=== PATIENT | male | born 1960 | race Two or more races ===

== ENCOUNTER 2016-05-29 01:53 | Inpatient (IN) | payer MEDICAID, OTHER ==
[~2016-05-29] VITALS: Ht 162.6 cm; Wt 74.8 kg
[~2016-05-29 01:53] MED LIST: ACET-868 PO; ASCO500T9 PO; ASPI-605 PO; ATOR20TA PO; BENA40TA2 PO; CLON0.1T PO; CRAN475C PO; DOCU-106 PO; FURO20TA4 PO; GEMF600T3 PO; HYDR-3326 PO; HYDR-4076 PO; INSU100C7 SQ; METO50TA3 PO; MULT1TAB59 PO; OMEG1CAP PO; QUET100T PO; QUET50TA PO
[2016-05-29] MEDS ORDERED: INSU100V7 SQ (02:09)
[2016-05-29] MEDS ORDERED: METO-304 PO (02:09)
[2016-05-29] MEDS ORDERED: AMLO5TAB2 PO (02:09)
[2016-05-29] MEDS ORDERED: INSU100V27 SQ (02:09)
[2016-05-29] MEDS ORDERED: PANT40TA2 PO (02:09)
[2016-05-29] MEDS ORDERED: ALBUTEROL FS 2.5 MG/3 ML VIAL.NEB ONE (02:25)
[2016-05-29] MEDS ORDERED: ALBUTEROL FS 2.5 MG/3 ML VIAL.NEB CONTNEB ONE (02:30)
[2016-05-29 02:39] LABS: KETONES,URINE NEGATIVE (NEGATIVE); LEUKOCYTE ESTERASE ,URINE 1+ (NEGATIVE)
[2016-05-29 02:40] LABS: BASOPHILS % (AUTO) 0.1 % (0.0-2.0); DIFF TOTAL % 100 %; EOSINOPHILS # (AUTO) 0.1 /CMM (0.0-0.7); HEMATOCRIT 31 % (39-51); HEMOGLOBIN 10.1 g/dL (13.5-17.5); LYMPHOCYTES # (AUTO) 1.1 /CMM (0.8-4.8); MEAN CORPUSCULAR HEMOGLOBIN 30 PG (26.0-33.0); MEAN CORPUSCULAR HGB CONC 33 g/dl (31.0-36.0); MEAN CORPUSCULAR VOLUME 90 fL (80-96); MONOCYTES # (AUTO) 0.7 /CMM (0.1-1.30); MONOCYTES % (AUTO) 7.9 % (2.0-12.0); NEUTROPHILS # (AUTO) 7.1 /CMM (1.8-8.9); PLATELET COUNT (AUTO) 130 /CMM (150-450); RED BLOOD CELL COUNT(AUTO) 3.42 MIL/uL (4.5-6.0)
[2016-05-29 02:44] LABS: ADD UA MICROSCOPIC YES
[2016-05-29 02:48] LABS: RBC,URINE 0-5 /HPF (0-2)
[2016-05-29 02:49] LABS: ADD URINE CULTURE YES; MUCUS,URINE Few /LPF (None Seen)
[2016-05-29 02:49] LABS: CALCIUM, SERUM 8.1 mg/dL (8.5-10.1); CREATININE 1.3 mg/dL (0.6-1.3)
[2016-05-29 02:59] LABS: INR 1.07 (0.87-1.13); PROTHROMBIN TIME 11.6 SECS (9.5-12.7)
[2016-05-29] MEDS ORDERED: CEFTRIAXONE 1GM BAG (ER ONLY) 50 ML IV ONE (03:34)
[2016-05-29] MEDS ORDERED: IV SET PRIMARY 1 EA INFUS.SET MC ONE (03:34)
[2016-05-29] MEDS ORDERED: CEFTRIAXONE 1GM BAG (ER ONLY) 1 GM/50 ML PIGGYBACK IV ONE (04:00)
[2016-05-29 04:45] VITALS: BP 141/86
[2016-05-29] MEDS ORDERED: CEFTRIAXONE 1 G in IV D5W 50 ML IV SCH (05:30)
[2016-05-29] MEDS ORDERED: DEXTROSE 50%-WATER 50 ML DISP.SYRIN IV PRN (06:00)
[2016-05-29] MEDS ORDERED: *INSULIN REGULAR(HUMULIN R)HUM 100 UNIT/ML VIAL SQ PRN (06:00)
[2016-05-29] MEDS: BLOOD SUGAR DIAGNOSTIC 1 EACH STRIP VI SCH ×4 (06:42→21:34)
[2016-05-29] MEDS: INSULIN REGULAR, HUMAN 100 UNIT/ML 3 ML VIAL SQ PRN ×3 (06:45→17:14)
[2016-05-29] MEDS ORDERED: BLOOD SUGAR DIAGNOSTIC 1 EACH STRIP IN SCH (07:30)
[2016-05-29 08:00] VITALS: BP 167/75
[2016-05-29 08:07] LABS: ALBUMIN 2.4 g/dL (3.4-5.0); BILIRUBIN,TOTAL 0.2 mg/dL (0.2-1.0); CREATININE 1.5 mg/dL (0.6-1.3); POTASSIUM 4.5 mmol/L (3.5-5.1); TOTAL PROTEIN, SERUM 5.9 g/dL (6.4-8.2)
[2016-05-29] MEDS: ASPIRIN EC 81 MG TABLET.DR PO SCH (11:25)
[2016-05-29] MEDS: METOPROLOL SUCCINATE 50 MG TAB.SR.24H PO SCH (11:26)
[2016-05-29] MEDS: ATORVASTATIN 10 MG TABLET PO SCH (11:27)
[2016-05-29] MEDS ORDERED: INSULIN REGULAR, HUMAN 100 UNIT/ML 3 ML VIAL SQ SCH (12:00)
[2016-05-29] MEDS: INSULIN ASPART NOVOLOG 100 UNIT/ML CARTRIDGE SQ SCH ×2 (12:30→17:13)
[2016-05-29 15:51] LABS: TROPONIN I 0.025 ng/mL (0.00-0.056)
[2016-05-29 16:00] VITALS: BP 156/71
[2016-05-29] MEDS ORDERED: BENAZEPRIL HCL 20 MG TABLET PO SCH (17:00)
[2016-05-29] MEDS: AMLODIPINE BESYLATE 5 MG TABLET PO SCH (17:11)
[2016-05-29] MEDS: BENAZEPRIL HCL 20 MG TABLET PO SCH (17:12)
[2016-05-29 20:00] VITALS: BP 137/82
[2016-05-29] MEDS: ALBUTEROL HALF STRENGTH 1.25 MG/3 ML VIAL.NEB NEB SCH ×2 (20:13→23:04)
[2016-05-29] MEDS: IPRATROPIUM NEB FS 0.5 MG/2.5 ML AMPUL.NEB NEB SCH ×2 (20:13→23:04)
[2016-05-29] MEDS ORDERED: CLONIDINE HCL 0.1 MG TABLET PO PRN (20:30)
[2016-05-29] MEDS ORDERED: ACETAMINOPHEN ES 500 MG TABLET ONE (21:23)
[2016-05-29] MEDS: INSULIN DETEMIR 100 UNIT/ML CARTRIDGE SQ SCH (21:32)
[2016-05-29] MEDS: FUROSEMIDE 20 MG/2 ML VIAL IV SCH (21:32)
[2016-05-29] MEDS: QUETIAPINE FUMARATE 100 MG TABLET PO SCH (21:34)
[2016-05-29] MEDS: ACETAMINOPHEN 650 MG/20.3 ML UDC PO PRN (21:36)
[2016-05-30] MEDS: IPRATROPIUM NEB FS 0.5 MG/2.5 ML AMPUL.NEB NEB SCH ×6 (03:16→23:46)
[2016-05-30] MEDS: ALBUTEROL HALF STRENGTH 1.25 MG/3 ML VIAL.NEB NEB SCH ×6 (03:17→23:46)
[2016-05-30] MEDS ORDERED: IV SET PRIMARY PUMP SET 1 EA INFUS.SET MC ONE (04:54)
[2016-05-30] MEDS ORDERED: IV NS 0.9% 250 ML IV ONE ×2 (04:54→04:55)
[2016-05-30] MEDS ORDERED: SECONDARY IV SET 1 EA INFUS.SET MC ONE (04:55)
[2016-05-30] MEDS: CEFTRIAXONE 1 G in IV D5W 50 ML IV SCH (05:31)
[2016-05-30] MEDS: BLOOD SUGAR DIAGNOSTIC 1 EACH STRIP VI SCH ×2 (07:12→11:27)
[2016-05-30] MEDS: INSULIN ASPART NOVOLOG 100 UNIT/ML CARTRIDGE SQ SCH ×3 (07:13→17:12)
[2016-05-30 08:00] VITALS: BP 138/68
[2016-05-30] MEDS: INSULIN DETEMIR 100 UNIT/ML CARTRIDGE SQ SCH ×2 (09:00→21:21)
[2016-05-30] MEDS: BENAZEPRIL HCL 20 MG TABLET PO SCH ×2 (09:02→16:56)
[2016-05-30] MEDS: ASPIRIN EC 81 MG TABLET.DR PO SCH (09:02)
[2016-05-30] MEDS: FUROSEMIDE 20 MG/2 ML VIAL IV SCH ×2 (09:02→21:17)
[2016-05-30] MEDS: ATORVASTATIN 10 MG TABLET PO SCH (09:02)
[2016-05-30] MEDS: AMLODIPINE BESYLATE 5 MG TABLET PO SCH ×2 (09:03→16:56)
[2016-05-30] MEDS: PANTOPRAZOLE 40 MG TABLET.DR PO SCH (09:03)
[2016-05-30] MEDS: METOPROLOL SUCCINATE 50 MG TAB.SR.24H PO SCH (09:03)
[2016-05-30 12:00] VITALS: BP 130/70
[2016-05-30] MEDS: ACETAMINOPHEN 650 MG/20.3 ML UDC PO PRN (15:15)
[2016-05-30] MEDS ORDERED: DEXTROSE 50%-WATER 50 ML DISP.SYRIN IV PRN (15:30)
[2016-05-30 16:00] VITALS: BP 149/73
[2016-05-30 16:04] VITALS: BP 149/73
[2016-05-30] MEDS: BLOOD SUGAR DIAGNOSTIC 1 EACH STRIP IN SCH ×2 (16:57→21:21)
[2016-05-30] MEDS: INSULIN ASPART NOVOLOG 100 UNIT/ML CARTRIDGE SQ PRN (17:10)
[2016-05-30 19:44] LABS: CHOLESTEROL 145 mg/dL (<200); HDL CHOLESTEROL 31 mg/dL (40-60); LDL 99 mg/dL (0-99); TRIGLYCERIDES 79 mg/dL (30-150)
[2016-05-30 20:00] VITALS: BP 155/72
[2016-05-30] MEDS: QUETIAPINE FUMARATE 100 MG TABLET PO SCH (21:21)
[2016-05-30] MEDS: *INSULIN ASPART NOVOLOG 100 UNIT/ML CARTRIDGE SQ PRN (21:30)
[2016-05-31] VITALS: BP 132/63
[2016-05-31] MEDS: ALBUTEROL HALF STRENGTH 1.25 MG/3 ML VIAL.NEB NEB SCH ×6 (03:30→23:39)
[2016-05-31] MEDS: IPRATROPIUM NEB FS 0.5 MG/2.5 ML AMPUL.NEB NEB SCH ×6 (03:30→23:39)
[2016-05-31 04:00] VITALS: BP 129/67
[2016-05-31] MEDS: CEFTRIAXONE 1 G in IV D5W 50 ML IV SCH (05:54)
[2016-05-31] MEDS ORDERED: IV NS 0.9% 250 ML IV ONE (05:54)
[2016-05-31] MEDS ORDERED: SECONDARY IV SET 1 EA INFUS.SET MC ONE (05:54)
[2016-05-31] MEDS ORDERED: IV SET PRIMARY PUMP SET 1 EA INFUS.SET MC ONE (05:54)
[2016-05-31] MEDS: BLOOD SUGAR DIAGNOSTIC 1 EACH STRIP IN SCH ×4 (05:55→21:37)
[2016-05-31 07:02] VITALS: BP 125/61
[2016-05-31] MEDS: INSULIN ASPART NOVOLOG 100 UNIT/ML CARTRIDGE SQ SCH ×3 (07:30→16:34)
[2016-05-31] MEDS: PANTOPRAZOLE 40 MG TABLET.DR PO SCH (08:15)
[2016-05-31] MEDS: AMLODIPINE BESYLATE 5 MG TABLET PO SCH ×2 (08:15→16:35)
[2016-05-31] MEDS: METOPROLOL SUCCINATE 50 MG TAB.SR.24H PO SCH (08:15)
[2016-05-31] MEDS: FUROSEMIDE 20 MG/2 ML VIAL IV SCH ×2 (08:15→21:36)
[2016-05-31] MEDS: ATORVASTATIN 10 MG TABLET PO SCH (08:15)
[2016-05-31] MEDS: ASPIRIN EC 81 MG TABLET.DR PO SCH (08:15)
[2016-05-31] MEDS: BENAZEPRIL HCL 20 MG TABLET PO SCH ×2 (08:15→16:36)
[2016-05-31] MEDS: INSULIN DETEMIR 100 UNIT/ML CARTRIDGE SQ SCH ×2 (08:20→21:33)
[2016-05-31 12:00] VITALS: BP_SYST 122; BP_DIAS 66; BP_DIAS 69
[2016-05-31 15:46] LABS: BASOPHILS % (AUTO) 0.2 % (0.0-2.0); DIFF TOTAL % 100 %; EOSINOPHILS # (AUTO) 0.1 /CMM (0.0-0.7); EOSINOPHILS % (AUTO) 1.8 % (0.0-6.0); HEMATOCRIT 27 % (39-51); LYMPHOCYTES # (AUTO) 1.3 /CMM (0.8-4.8); LYMPHOCYTES % (AUTO) 16.5 % (20.0-44.0); MEAN CORPUSCULAR HEMOGLOBIN 30 PG (26.0-33.0); MEAN CORPUSCULAR HGB CONC 34 g/dl (31.0-36.0); MEAN CORPUSCULAR VOLUME 90 fL (80-96); MONOCYTES # (AUTO) 0.8 /CMM (0.1-1.30); MONOCYTES % (AUTO) 10.9 % (2.0-12.0); NEUTROPHILS # (AUTO) 5.4 /CMM (1.8-8.9); NEUTROPHILS % (AUTO) 70.6 % (43.0-81.0); PLATELET COUNT (AUTO) 116 /CMM (150-450); WHITE BLOOD COUNT (AUTO) 7.6 K/uL (4.3-11.0)
[2016-05-31 15:55] LABS: CALCIUM, SERUM 8.4 mg/dL (8.5-10.1); CREATININE 1.6 mg/dL (0.6-1.3); POTASSIUM 5.1 mmol/L (3.5-5.1)
[2016-05-31 16:00] VITALS: BP 139/75
[2016-05-31 20:59] VITALS: BP 157/75
[2016-05-31] MEDS: *INSULIN ASPART NOVOLOG 100 UNIT/ML CARTRIDGE SQ PRN (21:34)
[2016-05-31] MEDS: QUETIAPINE FUMARATE 100 MG TABLET PO SCH (21:36)
[2016-06-01] VITALS (7 sets, daily range): BP systolic 117–149; BP diastolic 52–69
[2016-06-01] MEDS: IPRATROPIUM NEB FS 0.5 MG/2.5 ML AMPUL.NEB NEB SCH ×6 (03:28→23:45)
[2016-06-01] MEDS: ALBUTEROL HALF STRENGTH 1.25 MG/3 ML VIAL.NEB NEB SCH ×6 (03:28→23:45)
[2016-06-01] MEDS: CEFTRIAXONE 1 G in IV D5W 50 ML IV SCH (05:48)
[2016-06-01] MEDS: BLOOD SUGAR DIAGNOSTIC 1 EACH STRIP IN SCH ×4 (05:49→21:21)
[2016-06-01] MEDS ORDERED: SECONDARY IV SET 1 EA INFUS.SET MC ONE (06:07)
[2016-06-01] MEDS: INSULIN ASPART NOVOLOG 100 UNIT/ML CARTRIDGE SQ SCH ×3 (07:10→16:46)
[2016-06-01] MEDS: PANTOPRAZOLE 40 MG TABLET.DR PO SCH (08:16)
[2016-06-01] MEDS: METOPROLOL SUCCINATE 50 MG TAB.SR.24H PO SCH (08:17)
[2016-06-01] MEDS: AMLODIPINE BESYLATE 5 MG TABLET PO SCH ×2 (08:17→16:46)
[2016-06-01] MEDS: ASPIRIN EC 81 MG TABLET.DR PO SCH (08:17)
[2016-06-01] MEDS: ATORVASTATIN 10 MG TABLET PO SCH (08:17)
[2016-06-01] MEDS: BENAZEPRIL HCL 20 MG TABLET PO SCH ×2 (08:17→16:46)
[2016-06-01] MEDS: INSULIN DETEMIR 100 UNIT/ML CARTRIDGE SQ SCH ×2 (08:18→21:19)
[2016-06-01] MEDS: FUROSEMIDE 20 MG/2 ML VIAL IV SCH ×2 (08:22→21:17)
[2016-06-01] MEDS: INSULIN ASPART NOVOLOG 100 UNIT/ML CARTRIDGE SQ PRN (12:01)
[2016-06-01] MEDS: QUETIAPINE FUMARATE 100 MG TABLET PO SCH (21:16)
[2016-06-01] MEDS: *INSULIN ASPART NOVOLOG 100 UNIT/ML CARTRIDGE SQ PRN (21:20)
[2016-06-02] MEDS: ALBUTEROL HALF STRENGTH 1.25 MG/3 ML VIAL.NEB NEB SCH ×3 (03:39→11:20)
[2016-06-02] MEDS: IPRATROPIUM NEB FS 0.5 MG/2.5 ML AMPUL.NEB NEB SCH ×3 (03:39→11:20)
[2016-06-02] MEDS: CEFTRIAXONE 1 G in IV D5W 50 ML IV SCH (05:18)
[2016-06-02] MEDS: BLOOD SUGAR DIAGNOSTIC 1 EACH STRIP IN SCH ×2 (06:59→11:18)
[2016-06-02] MEDS: INSULIN ASPART NOVOLOG 100 UNIT/ML CARTRIDGE SQ SCH ×2 (07:01→11:19)
[2016-06-02 08:00] VITALS: BP 142/60
[2016-06-02] MEDS: ATORVASTATIN 10 MG TABLET PO SCH (09:00)
[2016-06-02] MEDS: FUROSEMIDE 20 MG/2 ML VIAL IV SCH (09:01)
[2016-06-02] MEDS: BENAZEPRIL HCL 20 MG TABLET PO SCH (09:01)
[2016-06-02] MEDS: ASPIRIN EC 81 MG TABLET.DR PO SCH (09:01)
[2016-06-02] MEDS: METOPROLOL SUCCINATE 50 MG TAB.SR.24H PO SCH (09:01)
[2016-06-02 09:02] VITALS: BP 142/60
[2016-06-02] MEDS: AMLODIPINE BESYLATE 5 MG TABLET PO SCH (09:02)
[2016-06-02] MEDS: INSULIN DETEMIR 100 UNIT/ML CARTRIDGE SQ SCH (09:05)
[2016-06-02] MEDS: PANTOPRAZOLE 40 MG TABLET.DR PO SCH (10:00)
[2016-06-02] MEDS: INSULIN ASPART NOVOLOG 100 UNIT/ML CARTRIDGE SQ PRN (11:20)
== END 2016-06-02 15:00 | DRG 137 ==
LOC: ER 01:54 → MED 04:23 → TELE 15:22 → MED 06-01 14:28
PROVIDERS: ADMIT Nurse Practitioner Primary Care; ATTEND Internal Medicine
DX: J69.0 Pneumonitis due to inhalation of food and vomit (principal); J96.01 Acute respiratory failure with hypoxia; I50.41 Acute combined systolic (congestive) and diastolic (congestive) heart failure; E11.22 Type 2 diabetes mellitus with diabetic chronic kidney disease; J44.0 Chronic obstructive pulmonary disease with (acute) lower respiratory infection; I13.0 Hypertensive heart and chronic kidney disease with heart failure and stage 1 through stage 4 chronic kidney disease, or unspecified chronic kidney disease; E11.649 Type 2 diabetes mellitus with hypoglycemia without coma; J44.1 Chronic obstructive pulmonary disease with (acute) exacerbation; Z79.4 Long term (current) use of insulin; Z98.61 Coronary angioplasty status; I25.10 Atherosclerotic heart disease of native coronary artery without angina pectoris; D63.8 Anemia in other chronic diseases classified elsewhere; E66.9 Obesity, unspecified; F17.210 Nicotine dependence, cigarettes, uncomplicated; I73.9 Peripheral vascular disease, unspecified; J20.9 Acute bronchitis, unspecified; Z89.512 Acquired absence of left leg below knee; N18.3 Chronic kidney disease, stage 3 (moderate); Z86.19 Personal history of other infectious and parasitic diseases
CPT/HCPCS: 36415; 71020-TC; 80048-TC; 80053-TC; 80061-TC; 81000-TC; 82947-TC; 82962-TC; 83880; 84484-TC; 85025-TC; 85610-TC; 87081-TC; 87086-TC; 93307-TC; 94799-TC; 97001-TC; 97003-TC; A4606; J0696; J1815; J1940; J7050; J7060; Z7610

== ENCOUNTER 2019-03-22 10:57 | Emergency (ER) | payer OTHER ==
[~2019-03-22] VITALS: Ht 157.5 cm; Wt 63.5 kg
[~2019-03-22 10:57] MED LIST changes: -ACET-868 PO; +AMLO5TAB9 PO; -ASCO500T9 PO; -BENA40TA2 PO; -CLON0.1T PO; -CRAN475C PO; -DOCU-106 PO; -FURO20TA4 PO; -GEMF600T3 PO; -HYDR-3326 PO; -HYDR-4076 PO; -INSU100C7 SQ; +INSU100V27 SQ; +INSU100V7 SQ; +METO-357 PO; -METO50TA3 PO; -MULT1TAB59 PO; -OMEG1CAP PO; +PANT40TA2 PO; -QUET50TA PO
[2019-03-22 11:01] VITALS: BP 160/68
--- NOTE | 2019-03-22 11:20 | NUR ---
per jf juarez eta 1200. trip # [id number]
--- NOTE | 2019-03-22 12:30 | NUR ---
Patient picked up by [facility] in stable condition. patient will be brought back to [facility]. Written and verbal after care instructions given. Patient verbalizes understanding of instruction.
== END 2019-03-22 12:43 ==
LOC: ER 11:01
DX: J02.9 Acute pharyngitis, unspecified (principal); I10 Essential (primary) hypertension; E11.9 Type 2 diabetes mellitus without complications; Z89.512 Acquired absence of left leg below knee; Z79.4 Long term (current) use of insulin; Z79.899 Other long term (current) drug therapy; Z79.82 Long term (current) use of aspirin

== ENCOUNTER 2019-12-10 18:40 | Emergency (ER) | payer OTHER ==
[~2019-12-10] VITALS: Ht 157.5 cm; Wt 63.5 kg
--- NOTE | 2019-12-10 18:40 | NUR ---
PT BIBRA FROM SNF C/O ABODMINAL PAIN FOR 2 WEEKS. PT IS AAOX4, NOT IN RESPIRATORY DISTRESS, HOOKED TO JOCKEY ROOM CUSTODIAN, KEPT RESTED AND COMFORTABLE. WILL CONTINUE TO MONITOR.
--- NOTE | 2019-12-10 18:58 | NUR ---
PT SEEN AND EXAMINED BY JAYA CORBETT.
[2019-12-10] MEDS ORDERED: ONDANSETRON HCL/PF 4 MG/2 ML VIAL IVP ONE (19:00)
[2019-12-10] MEDS ORDERED: IV NS 0.9% 1,000 ML BAG IV ONE (19:00)
[2019-12-10] MEDS ORDERED: MORPHINE SULFATE INJ 2 MG/ML DISP.SYRIN IV ONE (19:00)
--- NOTE | 2019-12-10 19:03 | NUR ---
IV LINE ESTABLISHED BLOOD DRAWN AND SENT TO LAB.
[2019-12-10] MEDS ORDERED: MORPHINE SULFATE INJ 4 MG/ML DISP.SYRIN ONE (19:09)
[2019-12-10] MEDS ORDERED: ONDANSETRON HCL/PF 4 MG/2 ML VIAL ONE (19:09)
[2019-12-10 19:13] LABS: BASOPHILS # (AUTO) 0.1 /CMM (0.0-0.2); BASOPHILS % (AUTO) 0.8 % (0.0-2.0); EOSINOPHILS % (AUTO) 0.5 % (0.0-6.0); HEMATOCRIT 36 % (39-51); HEMOGLOBIN 12.1 g/dL (13.5-17.5); LYMPHOCYTES # (AUTO) 0.7 /CMM (0.8-4.8); MEAN CORPUSCULAR HGB CONC 34 g/dl (31.0-36.0); MEAN CORPUSCULAR VOLUME 101 fL (80-96); MONOCYTES # (AUTO) 0.6 /CMM (0.1-1.30); MONOCYTES % (AUTO) 8.1 % (2.0-12.0); NEUTROPHILS # (AUTO) 6.2 /CMM (1.8-8.9); NEUTROPHILS % (AUTO) 81.6 % (43.0-81.0); PLATELET COUNT (AUTO) 94 /CMM (150-450); RED BLOOD CELL COUNT(AUTO) 3.58 MIL/uL (4.5-6.0); WHITE BLOOD COUNT (AUTO) 7.7 K/uL (4.3-11.0)
--- NOTE | 2019-12-10 19:16 | NUR ---
URINAL GIVEN BUT UNABLE TO PROVIDE URINE SPECIMEN THIS TIME.
--- NOTE | 2019-12-10 19:21 | NUR ---
ASKED PT TO PROVIDE URINE SAMPLE.
[2019-12-10 19:25] LABS: CREATININE 3.5 mg/dL (0.6-1.3); POTASSIUM 3.9 mmol/L (3.5-5.1)
--- NOTE | 2019-12-10 19:32 | NUR ---
URINE SENT TO LAB
[2019-12-10 19:36] LABS: ALBUMIN 3.5 g/dL (3.4-5.0); BILIRUBIN,DIRECT 0.1 mg/dL (0.0-0.2); BILIRUBIN,TOTAL 0.4 mg/dL (0.2-1.0); TOTAL PROTEIN, SERUM 6.3 g/dL (6.4-8.2)
--- NOTE | 2019-12-10 19:50 | NUR ---
[facility] in ED - 12/10/19 at 2001 by RASHARD US AT BEDSIDE
[2019-12-10 19:51] LABS: APPEARANCE,URINE Clear (CLEAR); BILIRUBIN,URINE Negative (NEGATIVE); BLOOD, URINE Negative Ery/uL (NEGATIVE); COLOR,URINE Yellow (YELLOW); KETONES,URINE Negative (NEGATIVE); LEUKOCYTE ESTERASE ,URINE Moderate (NEGATIVE); NITRITE, URINE Negative (NEGATIVE); PH,URINE 8.5 (5.0-8.0); PROTEIN,URINE >=300 mg/dl (NEGATIVE); UGLUCOSE 100 MG/DL mg/dL (NEGATIVE); UROBILINOGEN,URINE 0.2 EU/dL (0.2)
--- NOTE | 2019-12-10 19:59 | NUR ---
PT BROUGHT TO CT.
[2019-12-10 20:07] LABS: LYMPHOCYTES % (MANUAL) 10 % (16-48); MONOCYTES % (MANUAL) 4 % (0-11.0); NEUTROPHILS % (MANUAL) 86 (42-76)
--- NOTE | 2019-12-10 20:14 | NUR ---
BROUGHT BACK FROM CT
[2019-12-10 20:23] LABS: BACTERIA,URINE Few /HPF (None Seen); RBC,URINE 0-2 /HPF (0-2); SQUAMOUS EPITHELIAL CELL,UR Few /HPF (None Seen)
[2019-12-10 20:24] LABS: URINE AMORPHOUS URATE Moderate /HPF (None Seen)
--- NOTE | 2019-12-10 20:48 | NUR ---
aquarium tank attendant at bedside for blood cultures
[2019-12-10] MEDS ORDERED: CEFTRIAXONE 1GM BAG (ER ONLY) 0 ML IV ONE (20:52)
--- NOTE | 2019-12-10 20:54 | NUR ---
PAGED DR. HERNANDEZ- BUILDING MOVER JUMANA YODER NP SPEAKING WITH QUINTON CORBETT
[2019-12-10] MEDS ORDERED: CEFTRIAXONE 1GM BAG (ER ONLY) 1 GM/50 ML PIGGYBACK IV ONE (21:00)
--- NOTE | 2019-12-10 21:12 | NUR ---
CALLED FACILITY. FACILITY AWARE PT GOING BACK.
--- NOTE | 2019-12-10 21:19 | NUR ---
CALLED [facility] FOR TRANSPORT, SPOKE WITH LOLI. ETA ~2200
[2019-12-10] MEDS ORDERED: hydrALAZINE HCL 10 MG TABLET PO ONE (22:00)
[2019-12-10] MEDS ORDERED: hydrALAZINE HCL IV 20 MG VIAL IV ONE (22:00)
--- NOTE | 2019-12-10 22:01 | NUR ---
IV removed. Catheter intact and site benign. Pressure and 4x4 applied to site. No bleeding noted.
[2019-12-10] MEDS ORDERED: hydrALAZINE HCL 25 MG TABLET ONE (22:08)
--- NOTE | 2019-12-10 22:13 | NUR ---
REPORT GIVEN TO [facility]. Patient discharged in stable condition. Written and verbal after care instructions given. Patient verbalizes understanding of instruction.
--- NOTE | 2019-12-10 22:13 | NUR ---
[facility] in [facility] - 12/10/19 at 2213 by RASHARD REPORT GIVEN TO [facility]. MECHE SHAHID
[2019-12-10 22:17] VITALS: BP 151/58
== END 2019-12-10 22:25 | disposition home or self-care (01) ==
LOC: ER 18:49
DX: R10.84 Generalized abdominal pain (principal); D64.9 Anemia, unspecified; J98.11 Atelectasis; I12.0 Hypertensive chronic kidney disease with stage 5 chronic kidney disease or end stage renal disease; E11.22 Type 2 diabetes mellitus with diabetic chronic kidney disease; N18.6 End stage renal disease; Z99.2 Dependence on renal dialysis; Z89.512 Acquired absence of left leg below knee; Z79.4 Long term (current) use of insulin; Z79.82 Long term (current) use of aspirin; Z79.899 Other long term (current) drug therapy
CPT/HCPCS: 36415; 71045; 74176; 80048; 80076; 81001; 82962; 83690; 85025; 87086; 96374; 96375; 99285; J2270; J2405; J7030; 81000-TC; J0696

== ENCOUNTER 2020-12-04 22:02 | Emergency (ER) | payer OTHER ==
[~2020-12-04] VITALS: Ht 165.1 cm; Wt 63.5 kg
[~2020-12-04 22:02] MED LIST changes: +AMLO-212 PO; -AMLO5TAB9 PO
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
[2020-12-04] MEDS ORDERED: TRAMADOL HCL 50 MG TABLET ONE (23:58)
[2020-12-05] MEDS: TRAMADOL HCL 50 MG TABLET PO ONE
--- NOTE | 2020-12-05 00:03 | NUR ---
Patient discharged to assisted living facility in stable condition. Written and verbal after care instructions given. Patient verbalizes understanding of instruction. taken by ambulance.
--- NOTE | 2020-12-05 00:56 | NUR ---
CALLED CALL THE CAR FOR PT. ETA 2:30
--- NOTE | 2020-12-05 01:16 | NUR ---
REPORT GIVEN TO [facility] STAFF FOR [facility].
[2020-12-05 01:54] VITALS: BP 130/70
== END 2020-12-05 02:45 ==
LOC: ER 22:02
DX: S80.11XA Contusion of right lower leg, initial encounter (principal); E11.40 Type 2 diabetes mellitus with diabetic neuropathy, unspecified; I10 Essential (primary) hypertension; Z98.890 Other specified postprocedural states; Z79.4 Long term (current) use of insulin; Z79.82 Long term (current) use of aspirin; Z79.899 Other long term (current) drug therapy; X58.XXXA Exposure to other specified factors, initial encounter; Y93.89 Activity, other specified; Y92.89 Other specified places as the place of occurrence of the external cause; Y99.8 Other external cause status
CPT/HCPCS: 73552; 73564-TC; 73590-TC